=== PATIENT | female | born 1955 | race Caucasian/White ===

== ENCOUNTER → 2016-10-18 | Outpatient (CLI) | payer BC ==
[~2016-10-18] MED LIST: AMBIEN 5 MG TABL5 M1 PO; ARIMIDEX1 MG PO; CELEBREX 200 M200 M1 PO; FLEXERIL PO; FUROSEMIDE 20 M20 MG PO; GARCINIA CAMBO1 EACH PO; HYDROCODONE-APA1 TA1 PO; KEFLEX500 MG PO; KLOR-CON 1010 MEQ PO; LEVAQUIN 500 M500 M2 PO; LYRICA 50 MG50 MG PO; NORCO 5-325 TA1 EACH PO; NORTRIPTYLINE H50 M3 GT; NORTRIPTYLINE H50 M3 PO; ROCEPHIN 11 GM/1001 IV; ZOLOFT100 MG PO
== END ==
LOC: CAT 02:43
DX: R91.1 Solitary pulmonary nodule (principal); K83.1 Obstruction of bile duct

== ENCOUNTER → 2017-10-23 | Outpatient (CLI) | payer BC, OTHER | LOC: CAT 10:52 | DX: I25.10 Atherosclerotic heart disease of native coronary artery without angina pectoris (principal); R91.8 Other nonspecific abnormal finding of lung field; I10 Essential (primary) hypertension; Z90.49 Acquired absence of other specified parts of digestive tract; Z90.11 Acquired absence of right breast and nipple; Z85.3 Personal history of malignant neoplasm of breast ==

== ENCOUNTER → 2017-12-24 | Outpatient (CLI) | payer BC | LOC: CAT 12-02 08:33 | DX: J98.11 Atelectasis (principal); I25.10 Atherosclerotic heart disease of native coronary artery without angina pectoris; K86.89 Other specified diseases of pancreas; Z90.49 Acquired absence of other specified parts of digestive tract ==

== ENCOUNTER → 2018-01-10 | Outpatient (CLI) | payer BC | LOC: PET 08:41 | DX: R59.0 Localized enlarged lymph nodes (principal); Z85.3 Personal history of malignant neoplasm of breast ==

== ENCOUNTER → 2018-04-14 | Outpatient (CLI) | payer BC ==
[2018-04-14 08:32] LABS: CREATININE 0.9 mg/dL (0.6-1.0)
== END ==
LOC: CAT 07:42
PROVIDERS: Internal Medicine Pulmonary Disease
DX: I25.10 Atherosclerotic heart disease of native coronary artery without angina pectoris (principal); R59.0 Localized enlarged lymph nodes; R91.8 Other nonspecific abnormal finding of lung field; I10 Essential (primary) hypertension; Z85.3 Personal history of malignant neoplasm of breast; Z88.0 Allergy status to penicillin

== ENCOUNTER → 2018-09-18 | Outpatient (CLI) | payer BC | LOC: CAT 11:05 | DX: R91.8 Other nonspecific abnormal finding of lung field (principal); R59.0 Localized enlarged lymph nodes; I25.10 Atherosclerotic heart disease of native coronary artery without angina pectoris; E04.1 Nontoxic single thyroid nodule; Z85.3 Personal history of malignant neoplasm of breast; Z90.13 Acquired absence of bilateral breasts and nipples ==